=== PATIENT | male | born 1985 | race Caucasian/White ===

== ENCOUNTER 2016-03-07 18:14 | Emergency (ER) | payer SELFPAY ==
[~2016-03-07] VITALS: Ht 185.4 cm; Wt 126.5 kg
[2016-03-07 18:20] VITALS: Ht 185.4 cm; Wt 126.5 kg
[2016-03-07] MEDS ORDERED: IBUPROFEN 600 MG TAB PO ONE (19:30)
[2016-03-07] MEDS ORDERED: PROMETHAZINE/CODEINE 5ML CUP PO ONE (19:30)
--- NOTE | 2016-03-07 20:01 | RADRPT ---
PROCEDURE: XR Chest. CLINICAL INDICATION: chest pain TECHNIQUE: Single frontal view of the chest was obtained COMPARISON: None FINDINGS: The heart and mediastinum are within normal limits. The lungs are clear. There is no pleural effusion or pneumothorax. RPTAT: AA IMPRESSION: No acute disease. .Sam Krishnan MD, Date Time Electronically viewed and signed by .Sam Krishnan MD, on 03/07/2016 20:01 .S/
[2016-03-07] MEDS ORDERED: AZIT250T94 PO (20:08)
[2016-03-07] MEDS ORDERED: PROM5SYR2 PO (20:08)
[2016-03-07] MEDS ORDERED: IBUP-1542 PO (20:09)
--- NOTE | 2016-03-07 20:10 | ERD ---
ER Documentation Chief Complaint Date/Time DATE: 03/07/16 TIME: 20:09 Chief Complaint FLU SYMPTOMS X 5 DAYS HPI This 30-year-old male presents with cough, body aches and fever for last 5 days. He has productive sputum. Denies vomiting, abdominal pain, diarrhea, neck stiffness, rashes. His roommate has similar symptoms last week. ROS All systems reviewed and are negative except as per history of present illness. Medications Home Meds Active Scripts Ibuprofen* (Motrin*) 600 Mg Tab, 600 MG PO Q6, #15 TAB Prov:KANNAN NARANJO MD 03/07/16 Promethazine HCl/Codeine (Prometh-Codein 6.25-10 mg/5 ml) 5 Ml Syrup, 5 ML PO QID for 5 Days 6 ounces Prov:KANNAN NARANJO MD 03/07/16 Azithromycin* (Zithromax*) 250 Mg Tablet, 250 MG PO .ZPACK DIRECTED, #6 TAB TAKE 500 MG (2 TABS) THE FIRST DAY THEN 250 MG (1 TAB) DAYS 2-5 Prov:KANNAN NARANJO MD 03/07/16 Allergies Allergies: Coded Allergies: No Known Allergy (Unverified , 03/07/16) PMhx/Soc Medical and Surgical Hx: pt denies Surgical Hx Hx Cardiac Disorders: Yes (HTN) Hx Alcohol Use: No Hx Substance Use: No Hx Tobacco Use: No Smoking Status: Never smoker Physical Exam Vitals Vital Signs Date Time Temp Pulse Resp B/P Pulse Ox O2 Delivery O2 Flow Rate FiO2 03/07/16 18:20 100.9 114 20 132/94 96 Physical Exam Const: [] Alert, [id number] Head: Atraumatic Eyes: Normal Conjunctiva ENT: Normal External Ears, Nose and Mouth. Neck: Full range of motion..~ No meningismus. Coarse breath sounds without rales or rhonchi appreciated. Resp: Clear to auscultation bilaterally Cardio: Regular rate and rhythm, no murmurs Abd: Soft, non tender, non distended. Normal bowel sounds Skin: No petechiae or rashes Back: No midline or flank tenderness Ext: No cyanosis, or edema Neur: Awake and alert Psych: Normal Mood and Affect Results 24 hrs Current Medications Medications (Trade) Dose Ordered Sig/Homero Route PRN Reason Start Time Stop Time Status Last Admin Dose Admin Ibuprofen (Motrin) 600 mg ONCE ONCE PO 03/07/16 19:30 03/07/16 19:31 DC 03/07/16 19:33 Promethazine HCl/ Codeine (Phenergan/ Codeine) 10 ml ONCE ONCE PO 03/07/16 19:30 03/07/16 19:31 DC 03/07/16 19:33 Procedures/MDM Chest X-ray 1V Interpreted by me: Soft Tissue: No acute abnormalities Bones: No acute abnormalities Mediastinum/Cardiac Silhouette/Lungs: [No acute abnormalities]. Impression- normal 1 view chest x-ray Patient was given ibuprofen 600 mg by mouth Phenergan with codeine 10 mils by mouth. Patient has URI symptoms and bodies suggestive of influenza or flu type illness. Given the productive cough he will be treated with Zithromax, promethazine with codeine and ibuprofen. The patient was stable with no new complaints during the ER course. Clinically, there is no current evidence to suggest meningitis, sepsis, acute abdomen, pneumonia, acute coronary syndrome, pulmonary embolism, or any other emergent condition appearing to require further evaluation or hospitalization. The patient should certainly return for any new or worsening symptoms per the aftercare instructions. They should otherwise follow-up with her primary care doctor for reevaluation this week. Departure Diagnosis: Primary Impression: Influenza-like symptoms Condition: Stable Patient Instructions: Acute Bronchitis Additional Instructions: X-ray normal. Recheck for new or worsening symptoms with primary care doctor. KANNAN NARANJO MD Mar 07, 2016 20:10
[2016-03-07 20:26] VITALS: BP 136/89; PULSE 117; RESP 16; TEMP 99.1
== END 2016-03-07 20:52 | disposition home or self-care (01) ==
LOC: FTE 18:14
DX: R05 Cough (principal); R50.9 Fever, unspecified; R52 Pain, unspecified; I10 Essential (primary) hypertension
CPT/HCPCS: 71010